=== PATIENT | female | born 1980 | race Caucasian/White ===

== ENCOUNTER 2016-10-13 10:47 | Emergency (ER) | payer BC, MEDICAID ==
[~2016-10-13] VITALS: Ht 172.7 cm; Wt 100.7 kg
[~2016-10-13 10:47] MED LIST: ACHYD1T PO; BREA1EAC5 MC; BUTA1TAB55 PO; DCS100C PO; HYDR-3720 PO; IBP800T PO; OMEP-10 PO; PREN1TAB39 PO
[2016-10-13] MEDS ORDERED: FOLI1TAB24 (11:03)
[2016-10-13] MEDS ORDERED: NORG1TAB77 (11:03)
[2016-10-13] MEDS ORDERED: morphine INJ 10 MG/ML 1ML (SYR OR VIAL) IVP STA (11:35)
[2016-10-13] MEDS ORDERED: NS IV 1000 ML 1,000 ML IV ONE (11:35)
[2016-10-13 11:44] LABS: BILIRUBIN,URINE NEGATIVE (NEGATIVE); KETONES,URINE NEGATIVE (NEGATIVE); LEUKOCYTE ESTERASE ,URINE NEGATIVE (NEGATIVE); NITRITE,URINE NEGATIVE (NEGATIVE); PH,URINE 6.5 (5-9); PROTEIN,URINE NEGATIVE (NEGATIVE); UROBILINOGEN,URINE NORMAL (NORMAL)
--- NOTE | 2016-10-13 11:45 | ED Abdominal Pain ---
General Chief Complaint: Abdominal/GI Problems Stated Complaint: RIGHT ABD PAIN Nursing Triage Note: AMB TO ROOM WITH R UPPER QUAD PAIN. Sepsis Screen: No Definite Risk History of Present Illness Time Seen By Provider: 11:25 Initial Comments Evaluation evaluation for her right upper quadrant pain, started at noon yesterday. The patient does report having several episodes of diarrhea through the weekend. She had normal bowel movement yesterday evening. Denies any urinary symptoms. She has had 2 previous C-sections no other abdominal surgeries. Her last food intake was at 1999, 10/12/16. She had sips of water this morning. Pain 12/14. Timing/Duration: 12 Hours Severity/Quality: Moderate Location: RUQ Radiation: Flank Activities at Onset: None Modifying Factors: Improves With Lying down, Improves With Resting Associated Symptoms: Denies Symptoms Allergies and Home Medications Allergies Coded Allergies: minocycline (Verified Allergy, Unknown, 06/11/11) tetracycline (Verified Allergy, Unknown, 06/11/11) Home Medications Breast Pump 1 Pkt Each, 1 CHANELLE UD, #1 Prescribed by: JENNIFER SAMS on 10/02/13 0733 Docusate Sodium 100 Mg Capsule, 1 CAP PO DAILY PRN for CONSTIPATION, #60 Prescribed by: JENNIFER SAMS on 10/02/13 0733 Folic Acid 1 Mg Tablet, #120 (Reported) Hydrocodone Bit/Acetaminophen 1 Each Tablet, 1-2 TAB PO Q3H PRN for PAIN, #60 Prescribed by: JENNIFER SAMS on 10/02/13 0733 Hydrocodone/Acetaminophen 1 Each Tablet, 1 EACH PO Q4H PRN for PAIN, #12 Ref 0 Prescribed by: SOFYA DELGADO on 10/13/16 1357 Ibuprofen 800 Mg Tablet, 1 TAB PO Q6H PRN for PAIN, #60 Prescribed by: JENNIFER SAMS on 10/02/13 0733 Norgestimate-Ethinyl Estradiol 1 Each Tablet, #84 (Reported) Omeprazole 20 Mg Capsule.dr, 20 MG PO DAILY, (Reported) Vits W-Ca,Fe,Fa(<1MG) 1 Each Tablet, 1 EACH PO DAILY, (Reported) Review of Systems Constitutional: no symptoms reported, see HPI EENTM: No Symptoms Reported, See HPI Respiratory: No Symptoms Reported, See HPI Cardiovascular: No Symptoms Reported, See HPI Gastrointestinal: See HPI, Denies Abdomen Distended, Abdominal Pain, Denies Blood Streaked Stools, Denies Constipated, Diarrhea, Denies Difficulty Swallowing, Denies Nausea, Denies Vomiting Genitourinary: No Symptoms Reported, See HPI, Denies Burning, Frequency, Denies Hematuria, Denies Pain, Denies Urgency Musculoskeletal: no symptoms reported, see HPI Skin: no symptoms reported, see HPI Psychiatric/Neurological: No Symptoms Reported, See HPI Endocrine: No Symptoms Reported, See HPI Hematologic/Lymphatic: No Symptoms Reported, See HPI All Other Systems Reviewed Negative Unless Noted: Yes Past Wzygckp-Pgefih-Khwjgg Hx Patient Social History Alcohol Use: Denies Use Recreational Drug Use: No Smoking Status: Never a Smoker Recent Foreign Travel: No Contact w/Someone Who Travel: No Recent Infectious Disease Expo: No Recent Hopitalizations: No Immunizations Up To Date Tetanus Booster (TDap): Unknown Surgeries HX Surgeries: Yes (Knee arthroscopy, C/S X1 2011) Respiratory Hx Respiratory Disorders: No Cardiovascular Hx Cardiac Disorders: No Neurological Hx Neurological Disorders: No Reproductive System Hx Reproductive Disorders: No Genitourinary Hx Genitourinary Disorders: No Gastrointestinal Hx Gastrointestinal Disorders: No Musculoskeletal Hx Musculoskeletal Disorders: No Endocrine Hx Endocrine Disorders: No HEENT HX ENT Disorders: No Cancer Hx Cancer: No Psychosocial Hx Psychiatric Problems: No Integumentary HX Skin/Integumentary Disorder: No Blood Transfusions Hx Blood Disorders: No Reviewed Nursing Assessment Reviewed/Agree w Nursing PMH: Yes Family Medical History Family Medial History: History of - anemia G8 SISTER History of - disorder No Family History of: Abdominal aortic aneurysm Brooke's disease Alcoholism Aphasia Cancer Cancer of colon Cataract Chest pain Congenital heart disease Congestive heart failure Cystic fibrosis Dementia Dysphagia Family history: Allergy Family history: Alzheimer's disease Family history: Arthritis Family history: Asthma Family history: Breast disease Family history: Cardiovascular disease Family history: Coronary thrombosis Family history: Diabetes mellitus Family history: Gastrointestinal disease Family history: Glaucoma Family history: Hypertension Family history: Osteoporosis Family history: Thyroid disorder Headache Hearing loss Heart disease Hereditary disease History of - respiratory disease History of drug abuse Human immunodeficiency virus (HIV) seropositivity Hypercholesterolemia Infertile Kidney disease Malignant neoplasm of lung Myocardial infarction Parkinson's disease Prostate cancer Psychotic disorder Seizure disorder Stroke Tuberculosis Visual impairment Physical Exam Vital Signs VS - Last 72 Hours, by Label 10/13/16 10/13/16 10:53 14:05 Temp 99.7 Pulse 65 60 Resp 18 18 B/P (MAP) 165/99 Pulse Ox 97 Capillary Refill : Less Than 3 Seconds General Appearance: WD/WN, no apparent distress HEENT: PERRL/EOMI, normal ENT inspection, TMs normal, pharynx normal Neck: non-tender, full range of motion, supple, normal inspection, No lymphadenopathy (R), No lymphadenopathy (L) Respiratory: chest non-tender, lungs clear, normal breath sounds, no respiratory distress Cardiovascular: normal peripheral pulses, regular rate, rhythm, no edema, no JVD, no murmur Peripheral Pulses: 2+ Carotid (R), 2+ Carotid (L), 2+ Dorsalis Pedis (R), 2+ Left Dors-Pedis (L), 2+ Radial Pulses (R), 2+ Radial Pulses (L) Gastrointestinal: normal bowel sounds, soft, no organomegaly, no pulsatile mass , No distended, guarding, No rebound, tenderness (right upper quadrant), No hepatomegaly, No spleenomegaly, other (+Ro sign) Extremities: normal range of motion, non-tender, normal inspection, no pedal edema, no calf tenderness, normal capillary refill Back: normal inspection, no CVA tenderness Neurologic/Psychiatric: no motor/sensory deficits, alert, normal mood/affect, oriented x 3 Skin: normal color, warm/dry, No jaundice, No pallor, No rash Lymphatic: no adenopathy Progress/Results/Core Measures Results/Orders Lab Results Laboratory Tests Test 10/13/16 11:35 10/13/16 11:38 Range/Units Urine Color YELLOW Urine Clarity CLEAR Urine pH 6.5 5-9 Urine Specific [place] 1.005 L 1.016-1.022 Urine Protein NEGATIVE NEGATIVE Urine Glucose (UA) NEGATIVE NEGATIVE Urine Ketones NEGATIVE NEGATIVE Urine Nitrite NEGATIVE NEGATIVE Urine Bilirubin NEGATIVE NEGATIVE Urine Urobilinogen NORMAL NORMAL MG/DL Urine Leukocyte Esterase NEGATIVE NEGATIVE Urine RBC (Auto) NEGATIVE NEGATIVE Urine RBC NONE /HPF Urine WBC NONE /HPF Urine Squamous Epithelial Cells 0-2 /HPF Urine Crystals NONE /LPF Urine Bacteria TRACE /HPF Urine Casts NONE /LPF Urine Mucus NEGATIVE /LPF Urine Culture Indicated NO White Blood Count 6.4 4.3-11.0 10^3/uL Red Blood Count 4.66 4.35-5.85 10^6/uL Hemoglobin 13.9 11.5-16.0 G/DL Hematocrit 40 35-52 % Mean Corpuscular Volume 86 80-99 FL Mean Corpuscular Hemoglobin 30 25-34 PG Mean Corpuscular Hemoglobin Concent 35 32-36 G/DL Red Cell Distribution Width 11.8 10.0-14.5 % Platelet Count 153 130-400 10^3/uL Mean Platelet Volume 10.2 7.4-10.4 FL Neutrophils (%) (Auto) 50 42-75 % Lymphocytes (%) (Auto) 43 12-44 % Monocytes (%) (Auto) 6 0-12 % Eosinophils (%) (Auto) 1 0-10 % Basophils (%) (Auto) 0 0-10 % Neutrophils # (Auto) 3.2 1.8-7.8 X 10^3 Lymphocytes # (Auto) 2.8 1.0-4.0 X 10^3 Monocytes # (Auto) 0.4 0.0-1.0 X 10^3 Eosinophils # (Auto) 0.1 0.0-0.3 10^3/uL Basophils # (Auto) 0.0 0.0-0.1 10^3/uL Sodium Level 140 135-145 MMOL/L Potassium Level 4.0 3.6-5.0 MMOL/L Chloride Level 108 H 98-107 MMOL/L Carbon Dioxide Level 24 21-32 MMOL/L Anion Gap 8 5-14 MMOL/L Blood Urea Nitrogen 8 7-18 MG/DL Creatinine 0.79 0.60-1.30 MG/DL Estimat Glomerular Filtration Rate > 60 BUN/Creatinine Ratio 10 Glucose Level 88 70-105 MG/DL Calcium Level 9.1 8.5-10.1 MG/DL Total Bilirubin 0.4 0.1-1.0 MG/DL Aspartate Amino Transf (AST/SGOT) 15 5-34 U/L Alanine Aminotransferase (ALT/SGPT) 13 0-55 U/L Alkaline Phosphatase 65 40-136 U/L Total Protein 7.3 6.4-8.2 G/DL Albumin 4.3 3.2-4.5 G/DL Triglycerides Level 100 <150 MG/DL Cholesterol Level 158 < 200 MG/DL LDL Cholesterol Direct 79 1-129 MG/DL VLDL Cholesterol 20 5-40 MG/DL HDL Cholesterol 64 H 40-60 MG/DL Amylase Level 45 25-125 U/L Lipase 23 8-78 U/L My Orders Orders - SOFYA DELGADO [employer]PERATOR Morphine Injection (Morphine Injection (10/13/16 11:35) Amylase (10/13/16 11:35) Cbc With Automated Diff (10/13/16 11:35) Comprehensive Metabolic Panel (10/13/16 11:35) Lipase (10/13/16 11:35) Ua Culture If Indicated (10/13/16 11:35) Saline Lock/Iv-Start (10/13/16 11:35) Ns Iv 1000 Ml (Sodium Chloride 0.9%) (10/13/16 11:35) Us Gallbladder [id number] (10/13/16 11:35) Urine Bedside (10/13/16 11:46) Hyoscyamine Sl Tablet (Levsin Sl Tablet) (10/13/16 12:45) Ct Abdomen/Pelvis W (10/13/16 12:40) Iohexol Injection (Omnipaque 350 Mg/Ml 1 (10/13/16 13:00) Sodium Chloride Flush (Catheter Flush Sy (10/13/16 13:00) Ns (Ivpb) (Sodium Chloride 0.9% Ivpb Bag (10/13/16 13:00) Lipid Panel (10/13/16 13:33) Ketorolac Injection (Toradol Injection) (10/13/16 13:44) Medications Given in ED Current Medications Medications Dose Ordered Sig/Ulises Route Start Time Stop Time Status Last Admin Dose Admin Hyoscyamine Sulfate 0.125 mg ONCE ONCE SL 10/13/16 12:45 10/13/16 12:46 DC 10/13/16 13:18 0.125 MG Iohexol 100 ml ONCE ONCE IV 10/13/16 13:00 10/13/16 13:01 DC 10/13/16 13:01 100 ML Sodium Chloride 100 ml ONCE ONCE IV 10/13/16 13:00 10/13/16 13:01 DC 10/13/16 13:01 80 ML Sodium Chloride 1,000 ml @ 0 mls/hr Q0M ONCE IV 10/13/16 11:35 10/13/16 11:40 DC 10/13/16 11:45 1,000 MLS/HR Vital Signs/I&O Vital Sign - Last 12Hours 10/13/16 10/13/16 10:53 14:05 Temp 99.7 Pulse 65 60 Resp 18 18 B/P (MAP) 165/99 Pulse Ox 97 Blood Pressure Mean: 121 Progress Note : Time: 11:25 Progress Note Initial evaluation completed, recommended ultrasound of the gallbladder. Morphine 5 mg IV for pain and labs. 1200 WBC 6.4, hemoglobin 13.9, hematocrit 40, sodium 140, potassium 4.0, BUNs 8 , total bilirubin 0.4, AST 15, ALT 13, amylase 45, lipase 23. 1230 UA and Ultrasound gallbladder was essentially normal, with steatosis. Discussed with patient and her will follow-up with CT abdomen and pelvis. 1300 CT abdomen and pelvis normal. Lipid panel ordered, results all within normal limits. Discussed all results with the patient and her they will follow-up with Dr. Mandujano and consider referral to Dr. Denny. Diagnostic Imaging Diagonstic Imaging: CT, Ultrasound Plain Films/CT/US/NM/MRI: abdomen, pelvis, other (gallbladder) Comments NAME: [facility] REC#: [id number] PT STATUS: REG ER : 1980 PHYSICIAN: SOFYA DELGADO ADMIT DATE: 10/13/16/ER Draft Date of Exam:10/13/16 US GALLBLADDER [id number] PROCEDURE: US Gallbladder. TECHNIQUE: Multiple real-time grayscale images were obtained over the right upper quadrant in various projections. INDICATION: Abdominal pain Liver has increased echogenicity consistent with fatty infiltration. The gallbladder is clear with no stones or wall thickening. Common duct is nondilated. Pancreas is partially obscured by bowel gas. Right kidney appeared normal. There is no ascites. IMPRESSION: Hepatic steatosis. Dictated on workstation # [id number] Dict: 10/13/16 1227 Trans: 10/13/[address] [facility] [id number] Interpreted by: JENNIFER HERNANDEZ Electronically signed by: NAME: [facility] REC#: [id number] PT STATUS: REG ER : 1980 PHYSICIAN: SOFYA DELGADO ADMIT DATE: 10/13/16/ER Signed Date of Exam: 10/13/16 CT ABDOMEN/PELVIS W PROCEDURE: CT abdomen and pelvis with contrast. TECHNIQUE: Multiple contiguous axial images were obtained through the abdomen and pelvis after administration of intravenous contrast. INDICATION: Right-sided abdominal pain x1 day. FINDINGS: The lung bases are clear. The liver appears normal. The gallbladder is present. There are no pancreatic abnormalities. The spleen is not enlarged. Adrenals and kidneys appear normal. The appendix is normal. Small bowel is not dilated. Colon appears normal. Urinary bladder is normal. Uterus is present and appears normal. Ovaries appear normal. There is no intraperitoneal free air or free fluid. IMPRESSION: Negative CT of the abdomen and pelvis. Dictated by: Dictated on workstation # [id number] Dict: 10/13/16 1314 Trans: 10/13/16 1321 Interpreted by: JENNIFER HERNANDEZ Electronically signed by: JENNIFER HERNANDEZ 10/13/16 1321 Reviewed: Reviewed by Me, Reviewed/Discussed Departure Impression Impression: Primary Impression: Nonalcoholic fatty liver disease Additional Impression: Pain, abdominal, RUQ Disposition: 01 HOME, SELF-CARE Condition: Stable Departure-Patient Inst. Decision time for Depature: 13:15 Referrals: NICOL MANDUJANO MD (PCP/Family) Primary Care Physician Patient Instructions: Nonalcoholic Fatty Liver Disease (DC), Acute Abdomen ( Belly Pain), Adult (DC) Add. Discharge Instructions: Follow-up with Dr. Mandujano tomorrow. Make appointment to see Dr. Denny [phone] Use a bland diet, avoid fatty or greasy meals. Pain prescription as needed for discomfort. Return to emergency department for increased pain, vomiting or diarrhea, new concerns or problems. All discharge instructions reviewed with patient and/or family. Voiced understanding. Scripts Hydrocodone/Acetaminophen (Hydrocodon -Acetaminophen 5-325) 1 Each Tablet 1 EACH PO Q4H Y for PAIN, #12 TAB 0 Refills Prov: SOFYA DELGADO 10/13/16 Copy Copies To 1: NICOL MANDUJANO MD Copies To 2: YOEL DENNY DO SOFYA DELGADO October 13, 2016 11:45
[2016-10-13 11:47] LABS: BASOPHILS % (AUTO) 0 % (0-10); EOSINOPHILS # (AUTO) 0.1 10^3/uL (0.0-0.3); EOSINOPHILS % (AUTO) 1 % (0-10); LYMPHOCYTES # (AUTO) 2.8 X 10^3 (1.0-4.0); LYMPHOCYTES % (AUTO) 43 % (12-44); MEAN CORPUSCULAR HEMOGLOBIN 30 PG (25-34); MEAN CORPUSCULAR HGB CONC 35 G/DL (32-36); MEAN CORPUSCULAR VOLUME 86 FL (80-99); MEAN PLATELET VOLUME 10.2 FL (7.4-10.4); MONOCYTES # (AUTO) 0.4 X 10^3 (0.0-1.0); MONOCYTES % (AUTO) 6 % (0-12); NEUTROPHILS # (AUTO) 3.2 X 10^3 (1.8-7.8); NEUTROPHILS % (AUTO) 50 % (42-75); PLATELET COUNT 153 10^3/uL (130-400); RED BLOOD COUNT 4.66 10^6/uL (4.35-5.85); RED CELL DISTRIBUTION WIDTH 11.8 % (10.0-14.5); WHITE BLOOD COUNT 6.4 10^3/uL (4.3-11.0)
[2016-10-13 11:56] LABS: SQUAMOUS EPITHELIAL CELL,UR 0-2 /HPF
[2016-10-13 12:05] LABS: ALANINE AMINOTRANSFERASE 13 U/L (0-55); ALBUMIN 4.3 G/DL (3.2-4.5); AMYLASE 45 U/L (25-125); ANION GAP 8 MMOL/L (5-14); ASPARTATE AMINO TRANSFERASE 15 U/L (5-34); BILIRUBIN,TOTAL 0.4 MG/DL (0.1-1.0); BLOOD UREA NITROGEN 8 MG/DL (7-18); BUN/CREATININE RATIO 10; CALCIUM 9.1 MG/DL (8.5-10.1); CARBON DIOXIDE 24 MMOL/L (21-32); CHLORIDE 108 MMOL/L (98-107); CREATININE SERUM 0.79 MG/DL (0.60-1.30); GFR ESTIMATED > 60; GLUCOSE 88 MG/DL (70-105); LIPASE 23 U/L (8-78); SODIUM 140 MMOL/L (135-145); TOTAL PROTEIN 7.3 G/DL (6.4-8.2)
--- NOTE | 2016-10-13 12:30 | Diagnostic Imaging Report ---
PROCEDURE: US Gallbladder. TECHNIQUE: Multiple real-time grayscale images were obtained over the right upper quadrant in various projections. INDICATION: Abdominal pain Liver has increased echogenicity consistent with fatty infiltration. The gallbladder is clear with no stones or wall thickening. Common duct is nondilated. Pancreas is partially obscured by bowel gas. Right kidney appeared normal. There is no ascites. IMPRESSION: Hepatic steatosis. Dictated by: Dictated on workstation # [id number]
[2016-10-13] MEDS ORDERED: HYOSCYAMINE 0.125 MG (LEVSIN) TAB SL ONE (12:45)
[2016-10-13] MEDS ORDERED: NS 100 ML (IVPB) BAG IV ONE (13:00)
[2016-10-13] MEDS ORDERED: IOHEXOL 350 MG/ML 100 ML (OMNIPAQUE 350) VIAL IV ONE (13:00)
[2016-10-13] MEDS ORDERED: CATHETER FLUSH 10 ML SYR IV PRN (13:00)
--- NOTE | 2016-10-13 13:20 | Diagnostic Imaging Report ---
PROCEDURE: CT abdomen and pelvis with contrast. TECHNIQUE: Multiple contiguous axial images were obtained through the abdomen and pelvis after administration of intravenous contrast. INDICATION: Right-sided abdominal pain x1 day. FINDINGS: The lung bases are clear. The liver appears normal. The gallbladder is present. There are no pancreatic abnormalities. The spleen is not enlarged. Adrenals and kidneys appear normal. The appendix is normal. Small bowel is not dilated. Colon appears normal. Urinary bladder is normal. Uterus is present and appears normal. Ovaries appear normal. There is no intraperitoneal free air or free fluid. IMPRESSION: Negative CT of the abdomen and pelvis. Dictated by: Dictated on workstation # [id number]
[2016-10-13] MEDS ORDERED: KETOROLAC 30 MG/ML VIAL IVP STA (13:44)
[2016-10-13 13:54] LABS: CHOLESTEROL 158 MG/DL (< 200); DIRECT LDL 79 MG/DL (1-129); TRIGLYCERIDES 100 MG/DL (<150); VLDL CHOLESTEROL 20 MG/DL (5-40)
[2016-10-13] MEDS ORDERED: HYDR-3812 PO (13:57)
[2016-10-13 14:05] VITALS: BP 133/75
== END 2016-10-13 14:10 | disposition home or self-care (01) ==
LOC: EDUNIT# 10:47 → ER 10:50
DX: R10.11 Right upper quadrant pain (principal); K76.0 Fatty (change of) liver, not elsewhere classified
CPT/HCPCS: 36415; 74177; 76705; 80053; 80061; 81000; 82150; 83690; 84703; 85025

== ENCOUNTER 2018-04-15 10:28 | Outpatient (CLI) | payer BC, MEDICAID ==
[~2018-04-15] VITALS: Ht 172.7 cm; Wt 117.9 kg
[2018-04-15 08:50] VITALS: BP 136/72
--- OUTSIDE RECORDS SUMMARY | 2018-04-15 08:52 | XMS REPORT | Continuity of Care Document ---
Author Author [facility] Organization [facility] Address Unknown Phone Unavailable Allergies Active Description Code Type Severity Reaction Onset Reported/Identified Relationship to Patient Clinical Status Yes minocycline [id number] Drug Allergy Unknown N/A 06/11/2011 Yes tetracycline [id number] Drug Allergy Unknown N/A 06/11/2011 Medications There is no data. Problems Date Dx Coded Attending Type Code Diagnosis Diagnosed By 06/14/2011 Ot 642.71 TOX W OLD HYPERTEN-DELIV 06/14/2011 Ot 644.21 EARLY ONSET DELIVERY-DEL 06/14/2011 Ot 648.81 ABN GLUCOSE PETAR-DELIV 06/14/2011 Ot 660.31 PERSIST OCCIPTPOST-DELIV 06/14/2011 Ot 661.21 UTERINE INERT NEC-DELIV 06/14/2011 Ot V06.1 DIPHTHERIA- TETANUS-PERTUSSIS, COMBINED [ 06/14/2011 Ot V27.0 DELIVER- SINGLE LIVEBORN 04/30/2012 Ot 784.0 HEADACHE 10/02/2013 WILLIAM BARNETT, JENNIFER Main Ot 654.21 PREV DELIVRY W/ OR W/O MENT ANT 10/02/2013 JENNIFER THOMAS MD Ot V06.1 [id number], COMBINED [ 10/02/2013 WILLIAM BARNETT, JENNIFER Main Ot V27.0 DELIVER-SINGLE LIVEBORN 06/18/2014 JENNIFER THOMAS MD Ot 796.5 06/18/2014 JENNIFER THOMAS MD Ot 642.43 10/13/2016 JENNIFER THOMAS MD, Ot 796.5 ABN SCREENING 10/13/2016 JENNIFER THOMAS MD Ot 642.43 MILD/NOS PREECLAMP-ANTEP 10/13/2016 SOFYA DELGADO Ot K76.0 FATTY (CHANGE OF) LIVER, NOT ELSEWHERE C 10/13/2016 SOFYA DELGADOP Ot R10.11 RIGHT UPPER QUADRANT PAIN Procedures Code Description Performed By Performed On 73.4 MEDICAL INDUCTION LABOR 06/12/2011 74.1 LOW CERVICAL 06/12/2011 72.9 INSTRUMENT DELIVERY NOS 09/29/2013 74.1 LOW CERVICAL 09/29/2013 Results Test Result Range Complete urinalysis with reflex to culture - 10/13/16 11:35 Urine color determination YELLOW NRG Urine clarity determination CLEAR NRG Urine pH measurement by test strip 6.5 5-9 Specific gravity of urine by test strip 1.005 1.016- 1.022 Urine protein assay by test strip, semi-quantitative NEGATIVE NEGATIVE Urine glucose detection by automated test strip NEGATIVE NEGATIVE Erythrocytes detection in urine sediment by light microscopy NEGATIVE NEGATIVE Urine ketones detection by automated test strip NEGATIVE NEGATIVE Urine nitrite detection by test strip NEGATIVE NEGATIVE Urine total bilirubin detection by test strip NEGATIVE NEGATIVE Urine urobilinogen measurement by automated test strip (mass/volume) NORMAL NORMAL Urine leukocyte esterase detection by dipstick NEGATIVE NEGATIVE Automated urine sediment erythrocyte count by microscopy (number/high power field) NONE NRG Automated urine sediment leukocyte count by microscopy (number/high power field ) NONE NRG Bacteria detection in urine sediment by light microscopy TRACE NRG Squamous epithelial cells detection in urine sediment by light microscopy 0-2 NRG Crystals detection in urine sediment by light microscopy NONE NRG Casts detection in urine sediment by light microscopy NONE NRG Mucus detection in urine sediment by light microscopy NEGATIVE NRG Complete urinalysis with reflex to culture NO NRG Complete blood count (CBC) with automated white blood cell (WBC) differential - 10/13/16 11:38 Blood leukocytes automated count (number/volume) 6.4 10*3/uL 4.3-11.0 Blood erythrocytes automated count (number/volume) 4.66 10*6/uL 4.35-5.85 Venous blood hemoglobin measurement (mass/volume) 13.9 g/dL 11.5-16.0 Blood hematocrit (volume fraction) 40 % 35-52 Automated erythrocyte mean corpuscular volume 86 [foz_us] 80-99 Automated erythrocyte mean corpuscular hemoglobin (mass per erythrocyte) 30 pg 25-34 Automated erythrocyte mean corpuscular hemoglobin concentration measurement ( mass/volume) 35 g/dL 32-36 Automated erythrocyte distribution width ratio 11.8 % 10.0-14.5 Automated blood platelet count (count/volume) 153 10*3/uL 130-400 Automated blood platelet mean volume measurement 10.2 [foz_us] 7.4-10.4 Automated blood neutrophils/100 leukocytes 50 % 42-75 Automated blood lymphocytes/100 leukocytes 43 % 12-44 Blood monocytes/100 leukocytes 6 % 0-12 Automated blood eosinophils/100 leukocytes 1 % 0-10 Automated blood basophils/100 leukocytes 0 % 0-10 Blood neutrophils automated count (number/volume) 3.2 10*3 1.8-7.8 Blood lymphocytes automated count (number/volume) 2.8 10*3 1.0-4.0 Blood monocytes automated count (number/volume) 0.4 10*3 0.0-1.0 Automated eosinophil count 0.1 10*3/uL 0.0-0.3 Automated blood basophil count (count/volume) 0.0 10*3/uL 0.0-0.1 Comprehensive metabolic panel - 10/13/16 11:38 Serum or plasma sodium measurement (moles/volume) 140 mmol/L 135-145 Serum or plasma potassium measurement (moles/volume) 4.0 mmol/L 3.6-5.0 Serum or plasma chloride measurement (moles/volume) 108 mmol/L 98-107 Carbon dioxide 24 mmol/L 21-32 Serum or plasma anion gap determination (moles/volume) 8 mmol/L 5-14 Serum or plasma urea nitrogen measurement (mass/volume) 8 mg/dL 7-18 Serum or plasma creatinine measurement (mass/volume) 0.79 mg/dL 0.60-1.30 Serum or plasma urea nitrogen/creatinine mass ratio 10 NRG Serum or plasma creatinine measurement with calculation of estimated glomerular filtration rate > NRG Serum or plasma glucose measurement (mass/volume) 88 mg/dL 70-105 Serum or plasma calcium measurement (mass/volume) 9.1 mg/dL 8.5-10.1 Serum or plasma total bilirubin measurement (mass/volume) 0.4 mg/dL 0.1-1.0 Serum or plasma alkaline phosphatase measurement (enzymatic activity/volume) 65 U/L 40-136 Serum or plasma aspartate aminotransferase measurement (enzymatic activity/ volume) 15 U/L 5-34 Serum or plasma alanine aminotransferase measurement (enzymatic activity/volume ) 13 U/L 0-55 Serum or plasma protein measurement (mass/volume) 7.3 g/dL 6.4-8.2 Serum or plasma albumin measurement (mass/volume) 4.3 g/dL 3.2-4.5 Serum or plasma amylase measurement (enzymatic activity/volume) - 10/13/16 11: 38 Serum or plasma amylase measurement (enzymatic activity/volume) 45 U /L 25-125 Lipase - 10/13/16 11:38 Lipase 23 U/L 8-78 Lipid 1996 panel - 10/13/16 11:38 Serum or plasma triglyceride measurement (mass/volume) 100 mg/dL <150 Serum or plasma cholesterol measurement (mass/volume) 158 mg/dL < 200 Serum or plasma cholesterol in HDL measurement (mass/volume) 64 mg/ dL 40-60 Cholesterol in LDL [mass/volume] in serum or plasma by direct assay 79 mg/dL 1-129 Serum or plasma cholesterol in VLDL measurement (mass/volume) 20 mg/ dL 5-40 Encounters ACCT No. Visit Date/Time Discharge Status Pt. Type Provider Facility Loc./Unit Complaint [id number] 10/13/2016 10:50:00 10/13/2016 14:10:00 DIS Emergency SANDYSOFYA Rojas [facility] ER RIGHT ABD PAIN [id number] 09/29/2013 08:41:00 10/02/2013 19:00:00 DIS Inpatient JENNIFER THOMAS MD [facility] WS REPEAT [id number] 09/27/2013 11:01:00 09/27/2013 23:59:59 CLS Outpatient JENNIFER THOMAS MD [facility] LABNPT Mild or unspecified pre-eclampsia antepartum [id number] 09/19/2013 10:40:00 09/19/2013 23:59:59 CLS Outpatient JENNIFER THOMAS MD [facility] LABSTEPHYT Abnormal finding on screening [id number] 04/15/2018 08:48:00 ACT Inpatient JENNIFER THOMAS MD [facility] LDRP HIGH BLOOD PRESSURE [id number] 04/30/2012 21:07:00 Document Registration [id number] 06/11/2011 17:08:00 Document Registration
[2018-04-15 09:10] VITALS: BP 148/81
[2018-04-15 09:20] VITALS: BP 171/82
[2018-04-15 09:24] LABS: BILIRUBIN,URINE NEGATIVE (NEGATIVE); CLARITY,URINE CLEAR; COLOR,URINE YELLOW; GLUCOSE, URINE (UA) NEGATIVE (NEGATIVE); KETONES,URINE NEGATIVE (NEGATIVE); LEUKOCYTE ESTERASE ,URINE NEGATIVE (NEGATIVE); NITRITE,URINE NEGATIVE (NEGATIVE); PH,URINE 6 (5-9); PROTEIN,URINE NEGATIVE (NEGATIVE); UROBILINOGEN,URINE NORMAL (NORMAL)
[2018-04-15 09:26] LABS: BASOPHILS % (AUTO) 0 % (0-10); EOSINOPHILS # (AUTO) 0.1 10^3/uL (0.0-0.3); EOSINOPHILS % (AUTO) 1 % (0-10); HEMATOCRIT 36 % (35-52); HEMOGLOBIN 12.2 G/DL (11.5-16.0); LYMPHOCYTES # (AUTO) 2.3 X 10^3 (1.0-4.0); LYMPHOCYTES % (AUTO) 17 % (12-44); MEAN CORPUSCULAR HEMOGLOBIN 31 PG (25-34); MEAN CORPUSCULAR HGB CONC 34 G/DL (32-36); MEAN CORPUSCULAR VOLUME 90 FL (80-99); MEAN PLATELET VOLUME 9.5 FL (7.4-10.4); MONOCYTES # (AUTO) 0.9 X 10^3 (0.0-1.0); MONOCYTES % (AUTO) 6 % (0-12); NEUTROPHILS # (AUTO) 10.2 X 10^3 (1.8-7.8); NEUTROPHILS % (AUTO) 76 % (42-75); PLATELET COUNT 163 10^3/uL (130-400); RED CELL DISTRIBUTION WIDTH 13.3 % (10.0-14.5); WHITE BLOOD COUNT 13.5 10^3/uL (4.3-11.0)
[2018-04-15 09:28] LABS: SMEAR SCAN COMMENT NO
[2018-04-15 09:35] VITALS: BP 173/87
[2018-04-15 09:39] LABS: URINE PROTEIN RANDOM 11 MG/DL (6-12)
[2018-04-15 09:43] LABS: BAND NEUTROPHILS 0 %; EOSINOPHILS % (MANUAL) 0 %; LYMPHOCYTES % (MANUAL) 21 %; MONOCYTES % (MANUAL) 5 %; NEUTROPHILS % (MANUAL) 74 %
[2018-04-15 09:44] LABS: BASOPHILS % (MANUAL) 0 %; RBC MORPH NORMAL
[2018-04-15 09:53] LABS: ALANINE AMINOTRANSFERASE 16 U/L (0-55); ALBUMIN 3.5 GM/DL (3.2-4.5); ALKALINE PHOSPHATASE 101 U/L (40-136); BILIRUBIN,TOTAL 0.4 MG/DL (0.1-1.0); BUN/CREATININE RATIO 11; CARBON DIOXIDE 20 MMOL/L (21-32); CHLORIDE 107 MMOL/L (98-107); CREATININE SERUM 0.61 MG/DL (0.60-1.30); GFR ESTIMATED > 60; GLUCOSE 91 MG/DL (70-105); POTASSIUM 3.9 MMOL/L (3.6-5.0); SODIUM 137 MMOL/L (135-145); TOTAL PROTEIN 6.6 GM/DL (6.4-8.2); URIC ACID 4.2 MG/DL (2.6-7.2)
[2018-04-15 09:55] VITALS: BP 142/100
[~2018-04-15 10:28] MED LIST changes: +ACHD5005 PO; +FOLI1TAB24; +NORG1TAB77
--- NOTE | 2018-04-20 16:21 | Physician Query-Final Dx ---
ALBAN MACE 04/20/18 1621: Clinic Account Progress/Dx Physician Query: Please give diagnosis Date of Service Apr 15, 2018 at 10:28 JENNIFER THOMAS MD 04/22/18 1248: Clinic Account Progress/Dx DIAGNOSIS: Diagnosis LUIS ALBAN MACE Apr 20, 2018 16:21 JENNIFER THOMAS MD Apr 22, 2018 12:48
== END 2018-04-15 10:40 ==
LOC: LDRP 10:28 → WSo 10:28
PROVIDERS: ATTEND Obstetrics & Gynecology
DX: O13.9 Gestational [pregnancy-induced] hypertension without significant proteinuria, unspecified trimester (principal)
CPT/HCPCS: 36415; 80053; 81002; 82570; 83615; 84156; 84550; 85007; 85027; 99213

== ENCOUNTER → 2018-04-19 | Outpatient (CLI) | payer BC, MEDICAID | LOC: LABNPT 09:58 | PROVIDERS: ATTEND Obstetrics & Gynecology | DX: O28.8 Other abnormal findings on antenatal screening of mother (principal) | CPT/HCPCS: 82570; 84156 ==

== ENCOUNTER 2018-05-04 09:23 | Inpatient (IN) | payer BC, MEDICAID ==
[~2018-05-04] VITALS: Ht 172.7 cm; Wt 117.0 kg
[2018-05-04] VITALS (19 sets, daily range): BP systolic 137–187; BP diastolic 74–101
[~2018-05-04 09:23] MED LIST changes: +BETAMETHASONE ACE/NA PHOS 6 MG/ML (CELESTONE SOLUSPAN) IM SCH
[2018-05-04 09:58] LABS: BASOPHILS % (AUTO) 0 % (0-10); EOSINOPHILS # (AUTO) 0.1 10^3/uL (0.0-0.3); EOSINOPHILS % (AUTO) 1 % (0-10); HEMATOCRIT 34 % (35-52); HEMOGLOBIN 11.8 G/DL (11.5-16.0); LYMPHOCYTES # (AUTO) 2.1 X 10^3 (1.0-4.0); LYMPHOCYTES % (AUTO) 17 % (12-44); MEAN CORPUSCULAR HEMOGLOBIN 31 PG (25-34); MEAN CORPUSCULAR HGB CONC 34 G/DL (32-36); MEAN CORPUSCULAR VOLUME 89 FL (80-99); MEAN PLATELET VOLUME 9.5 FL (7.4-10.4); MONOCYTES # (AUTO) 0.9 X 10^3 (0.0-1.0); MONOCYTES % (AUTO) 7 % (0-12); NEUTROPHILS # (AUTO) 9.5 X 10^3 (1.8-7.8); NEUTROPHILS % (AUTO) 76 % (42-75); PLATELET COUNT 175 10^3/uL (130-400); RED BLOOD COUNT 3.84 10^6/uL (4.35-5.85); RED CELL DISTRIBUTION WIDTH 13.2 % (10.0-14.5); WHITE BLOOD COUNT 12.6 10^3/uL (4.3-11.0)
[2018-05-04] MEDS ORDERED: BETAMETHASONE ACE/NA PHOS 6 MG/ML (CELESTONE SOLUSPAN) ONE (10:10)
[2018-05-04] MEDS ORDERED: D5 LR IV SOLUTION 1,000 ML IV ONE (10:18)
[2018-05-04 10:21] LABS: ALANINE AMINOTRANSFERASE 12 U/L (0-55); ALBUMIN 3.4 GM/DL (3.2-4.5); ALKALINE PHOSPHATASE 110 U/L (40-136); BILIRUBIN,TOTAL 0.4 MG/DL (0.1-1.0); BUN/CREATININE RATIO 11; CALCIUM 9.1 MG/DL (8.5-10.1); CARBON DIOXIDE 20 MMOL/L (21-32); CHLORIDE 107 MMOL/L (98-107); CREATININE SERUM 0.65 MG/DL (0.60-1.30); GFR ESTIMATED > 60; GLUCOSE 84 MG/DL (70-105); SODIUM 137 MMOL/L (135-145); TOTAL PROTEIN 6.5 GM/DL (6.4-8.2); URIC ACID 3.9 MG/DL (2.6-7.2)
[2018-05-04] MEDS ORDERED: D5 LR IV SOLUTION 1,000 ML IV SCH (10:30)
[2018-05-04] MEDS ORDERED: LACTATED RINGERS 1,000 ML IV PRN ×2 (11:13)
[2018-05-04] MEDS ORDERED: FAMOTIDINE 20MG/2ML IV (PEPCID) IV ONE (11:15)
[2018-05-04] MEDS ORDERED: CITRIC ACID/SOB CIT (BICITRA) 30 ML UDC PO ONE (11:15)
[2018-05-04] MEDS ORDERED: MAGNESIUM SULFATE DRIP 500 ML IV ONE (11:15)
[2018-05-04] MEDS ORDERED: METOCLOPRAMIDE INJ 10 MG/2 ML (REGLAN) IV ONE (11:15)
[2018-05-04] MEDS ORDERED: MAGNESIUM 2 GM/50 ML IVPB 50 ML IV ONE (11:15)
[2018-05-04] MEDS ORDERED: MAGNESIUM 1 GM/100 ML IVPB 100 ML IV ONE (11:15)
[2018-05-04] MEDS ORDERED: CALCIUM GLUC. 10% 4.65 MEQ/10 ML VIAL IV PRN (11:15)
[2018-05-04] MEDS ORDERED: hydrALAZINE (APESOLINE) 20 MG/ML VIAL IV ONE ×3 (11:15→12:00)
[2018-05-04] MEDS ORDERED: hydrALAZINE (APESOLINE) 20 MG/ML VIAL ONE (11:15)
--- OUTSIDE RECORDS SUMMARY | 2018-05-04 11:18 | XMS REPORT | Continuity of Care Document ---
Author Author [facility] Organization [facility] Address Unknown Phone Unavailable Allergies Active Description Code Type Severity Reaction Onset Reported/Identified Relationship to Patient Clinical Status Yes minocycline [id number] Drug Allergy Unknown N/A 06/11/2011 Yes tetracycline [id number] Drug Allergy Unknown N/A 06/11/2011 Medications There [...] ANT 10/02/2013 JENNIFER THOMAS MD Ot V06.1 [id number], COMBINED [ 10/02/2013 WILLIAM BARNETT, JENNIFER Main Ot V27.0 DELIVER-SINGLE LIVEBORN 06/18/2014 JENNIFER THOMAS MD Ot 796.5 06/18/2014 JENNIFER THOMAS MD Ot 642.43 10/13/2016 JENNIFER THOMAS MD, Ot 796.5 ABN SCREENING 10/13/2016 JENNIFER THOMAS MD Ot 642.43 MILD/NOS PREECLAMP-ANTEP 10/13/2016 SOFYA DELGADO Ot K76.0 FATTY (CHANGE OF) LIVER, NOT ELSEWHERE C 10/13/2016 SOFYA DELGADO Ot R10.11 RIGHT UPPER QUADRANT PAIN 04/22/2018 JENNIFER THOMAS MD Ot O13.9 GESTATIONAL HTN W/O SIGNIFICANT PROTEINU 04/22/2018 JENNIFER THOMAS MD Ot O28.8 OTHER ABNORMAL FINDINGS ON SCR Procedures Code Description Performed By Performed On [...] VLDL measurement (mass/volume) 20 mg/ dL 5-40 Automated dipstick urinalysis - 04/15/18 08:40 Urine color determination YELLOW NRG Urine clarity determination CLEAR NRG Urine pH measurement by test strip 6 5-9 Specific gravity of urine by test strip 1.015 1.016- 1.022 Urine protein assay by test [...] leukocyte esterase detection by dipstick NEGATIVE NEGATIVE Urine protein measurement (mass/volume) - 04/15/18 08:40 Urine protein measurement (mass/volume) 11 mg/dL 6-12 Urine protein/creatinine mass ratio - 04/15/18 08:40 Urine protein measurement (mass/volume) 12 mg/dL 6-12 Urine creatinine measurement (mass/volume) 95 mg/dL 30- 125 Urine protein/creatinine mass ratio 0.13 NRG Blood CBC with ordered manual differential panel - 04/15/18 09:20 Blood leukocytes automated count (number/volume) 13.5 10*3/uL 4.3-11.0 Blood erythrocytes automated count (number/volume) 4.00 10*6/uL 4.35-5.85 Venous blood hemoglobin measurement (mass/volume) 12.2 g/dL 11.5-16.0 Blood hematocrit (volume fraction) 36 % 35-52 Automated erythrocyte mean corpuscular volume 90 [foz_us] 80-99 Automated erythrocyte mean corpuscular hemoglobin (mass per erythrocyte) 31 pg 25-34 Automated erythrocyte mean corpuscular hemoglobin concentration measurement ( mass/volume) 34 g/dL 32-36 Automated erythrocyte distribution width ratio 13.3 % 10.0-14.5 Automated blood platelet count (count/volume) 163 10*3/uL 130-400 Automated blood platelet mean volume measurement 9.5 [foz_us] 7.4-10.4 Automated blood neutrophils/100 leukocytes 76 % 42-75 Automated blood lymphocytes/100 leukocytes 17 % 12-44 Blood monocytes/100 leukocytes 5 % NRG Automated blood eosinophils/100 leukocytes 1 % 0-10 Automated blood basophils/100 leukocytes 0 % 0-10 Blood neutrophils automated count (number/volume) 10.2 10*3 1.8-7.8 Blood lymphocytes automated count (number/volume) 2.3 10*3 1.0-4.0 Blood monocytes automated count (number/volume) 0.9 10*3 0.0-1.0 Automated eosinophil count 0.1 10*3/uL 0.0-0.3 Automated blood basophil count (count/volume) 0.0 10*3/uL 0.0-0.1 Manual blood segmented neutrophils/100 leukocytes 74 % NRG Blood band neutrophils/100 leukocytes 0 % NRG Manual blood lymphocytes/100 leukocytes 21 % NRG Manual eosinophils/100 leukocytes in nose 0 % NRG Manual blood basophils/100 leukocytes 0 % NRG Blood erythrocyte morphology finding identification NORMAL [facility] Blood blood smear finding identification by light microscopy NO [facility] Comprehensive metabolic panel - 04/15/18 09:20 Serum or plasma sodium measurement (moles/volume) 137 mmol/L 135-145 Serum or plasma potassium measurement (moles/volume) 3.9 mmol/L 3.6-5.0 Serum or plasma chloride measurement (moles/volume) 107 mmol/L 98-107 Carbon dioxide 20 mmol/L 21-32 Serum or plasma anion gap determination (moles/volume) 10 mmol/L 5-14 Serum or plasma urea nitrogen measurement (mass/volume) 7 mg/dL 7-18 Serum or plasma creatinine measurement (mass/volume) 0.61 mg/dL 0.60-1.30 Serum or plasma urea nitrogen/creatinine mass ratio 11 NRG Serum or plasma creatinine measurement with calculation of estimated glomerular filtration rate > NRG Serum or plasma glucose measurement (mass/volume) 91 mg/dL 70-105 Serum or plasma calcium measurement (mass/volume) 9.0 mg/dL 8.5-10.1 Serum or plasma total bilirubin measurement (mass/volume) 0.4 mg/dL 0.1-1.0 Serum or plasma alkaline phosphatase measurement (enzymatic activity/volume) 101 U/L 40-136 Serum or plasma aspartate aminotransferase measurement (enzymatic activity/ volume) 22 U/L 5-34 Serum or plasma alanine aminotransferase measurement (enzymatic activity/volume ) 16 U/L 0-55 Serum or plasma protein measurement (mass/volume) 6.6 g/dL 6.4-8.2 Serum or plasma albumin measurement (mass/volume) 3.5 g/dL 3.2-4.5 CALCIUM CORRECTED 9.4 mg/dL 8.5-10.1 Serum or plasma uric acid measurement (mass/volume) - 04/15/18 09:20 Serum or plasma uric acid measurement (mass/volume) 4.2 mg/dL 2.6-7.2 Lactate dehydrogenase 1 [enzymatic activity/volume] in serum or plasma - 09:20 Lactate dehydrogenase 1 [enzymatic activity/volume] in serum or plasma 266 U/L 125-220 Urine protein/creatinine mass ratio - 04/19/18 09:58 Urine protein measurement (mass/volume) 13 mg/dL 6-12 Urine creatinine measurement (mass/volume) 135 mg/dL 30- 125 Urine protein/creatinine mass ratio 0.10 NRG Encounters ACCT No. Visit Date/Time Discharge Status Pt. Type Provider Facility Loc./Unit Complaint [id number] 04/19/2018 09:58:00 04/19/2018 23:59:59 [facility] Outpatient WILLIAM BARNETT, JENNIFER [facility] LABNPT [id number] 04/15/2018 10:28:00 04/15/2018 10:40:00 DIS Outpatient JENN[facility] THOMAS [facility] HIGH BLOOD PRESSURE [id number] 10/13/2016 10:50:00 10/13/2016 14:10:00 DIS Emergency SOFYA DELGADO [facility] ER RIGHT ABD PAIN [id number] 09/29/2013 08:41:00 10/02/2013 19:00:00 DIS Inpatient JENNIFER THOMAS MD [facility] WS REPEAT [id number] 09/27/2013 11:01:00 09/27/2013 23:59:59 CLS Outpatient JENNIFER THOMAS MD [facility] LABNPT Mild or unspecified pre-eclampsia antepartum [id number] 09/19/2013 10:40:00 09/19/2013 23:59:59 CLS Outpatient JENNIFER THOMAS MD [facility] LABNPT Abnormal finding on screening [id number] 04/30/2012 21:07:00 Document Registration [id number] 06/11/2011 17:08:00 Document Registration
[2018-05-04] MEDS: MAGNESIUM SULFATE DRIP 500 ML IV SCH ×2 (11:50→21:34)
[2018-05-04] MEDS ORDERED: BUPIVACAINE SPINAL 0.75% (SENSORCAINE) 2 ML AMP ONE (11:56)
[2018-05-04] MEDS ORDERED: fentaNYL INJECTION 100 MCG/2 ML AMP ONE (11:56)
[2018-05-04] MEDS ORDERED: LIDOCAINE PF 2% 5 ML (XYLOCAINE) VIAL ONE (11:58)
[2018-05-04] MEDS ORDERED: ONDANSETRON 4 MG/2 ML (SDV) Z0FRAN ONE (11:59)
[2018-05-04] MEDS ORDERED: MEPERIDINE (DEMEROL) INJ 100 MG/ML IM PRN (12:00)
[2018-05-04] MEDS ORDERED: D5 LR IV SOLUTION 1,000 ML IV PRN (12:00)
[2018-05-04] MEDS ORDERED: MAGNESIUM SULFATE DRIP 500 ML IV SCH (12:00)
[2018-05-04] MEDS ORDERED: PROMETHAZINE INJ 25 MG/ML (PHENERGAN) AMP IM PRN (12:00)
[2018-05-04] MEDS ORDERED: TETANUS,DIPTH,PERTUSS P/F (BOOSTRIX) 0.5 ML VIAL IM ONE (12:00)
--- NOTE | 2018-05-04 12:00 | History & Physical ---
History and Physical Date Seen by Provider: May 04, 2018 Time Seen by Provider: 11:57 This patient is a 37-year-old A1 2 white female who is seen in clinic on this day with blood pressures of 100 190/100 in teens. She has 0.7 urine drug protein creatinine ratio. She is hyperreflexic. She does complain of a headache denies ruptured membranes or bleeding. She says she feels maybe an occasional contraction. She is admitted from clinic to labor and delivery for management. Her blood pressure has not improved with 3 doses of hydralazine 5 mg IV patient has been started on magnesium with a 2 g bolus and try 2 g an hour and we will proceed with delivery GBS culture result is not available Allergies are to tetracycline which causes anaphylaxis Medications are vitamins and folic acid Medical social and surgical history is operative Arm record HEENT exam is normal Neck supple no lymphadenopathy no thyromegaly Abdomen is gravid soft nontender nondistended Extremities show no clubbing or cyanosis. There is no Homans sign. DTRs are 4 + globally Pelvic exam is deferred Laboratory Tests Test 05/04/18 09:15 05/04/18 09:49 Range/Units Urine Protein 32 H 6-12 MG/DL Urine Creatinine 41 30-125 MG/DL Urine Protein/Creatinine Ratio 0.78 White Blood Count 12.6 H 4.3-11.0 10^3/uL Red Blood Count 3.84 L 4.35-5.85 10^6/uL Hemoglobin 11.8 11.5-16.0 G/DL Hematocrit 34 L 35-52 % Mean Corpuscular Volume 89 80-99 FL Mean Corpuscular Hemoglobin 31 25-34 PG Mean Corpuscular Hemoglobin Concent 34 32-36 G/DL Red Cell Distribution Width 13.2 10.0-14.5 % Platelet Count 175 130-400 10^3/uL Mean Platelet Volume 9.5 7.4-10.4 FL Neutrophils (%) (Auto) 76 H 42-75 % Lymphocytes (%) (Auto) 17 12-44 % Monocytes (%) (Auto) 7 0-12 % Eosinophils (%) (Auto) 1 0-10 % Basophils (%) (Auto) 0 0-10 % Neutrophils # (Auto) 9.5 H 1.8-7.8 X 10^3 Lymphocytes # (Auto) 2.1 1.0-4.0 X 10^3 Monocytes # (Auto) 0.9 0.0-1.0 X 10^3 Eosinophils # (Auto) 0.1 0.0-0.3 10^3/uL Basophils # (Auto) 0.0 0.0-0.1 10^3/uL Sodium Level 137 135-145 MMOL/L Potassium Level 4.0 3.6-5.0 MMOL/L Chloride Level 107 98-107 MMOL/L Carbon Dioxide Level 20 L 21-32 MMOL/L Anion Gap 10 5-14 MMOL/L Blood Urea Nitrogen 7 7-18 MG/DL Creatinine 0.65 0.60-1.30 MG/DL Estimat Glomerular Filtration Rate > 60 BUN/Creatinine Ratio 11 Glucose Level 84 70-105 MG/DL Uric Acid 3.9 2.6-7.2 MG/DL Calcium Level 9.1 8.5-10.1 MG/DL Corrected Calcium 9.6 8.5-10.1 MG/DL Total Bilirubin 0.4 0.1-1.0 MG/DL Aspartate Amino Transf (AST/SGOT) 16 5-34 U/L Alanine Aminotransferase (ALT/SGPT) 12 0-55 U/L Alkaline Phosphatase 110 40-136 U/L Lactate Dehydrogenase 154 125-220 U/L Total Protein 6.5 6.4-8.2 GM/DL Albumin 3.4 3.2-4.5 GM/DL Urine protein creatinine ratio is elevated alkaline phosphatase, balance of the lab work is reassuring Assessment and plan 35+ week gestation with severe preeclampsia previous C- sections 2. Patient is admitted to start on magnesium which we will continue until her blood pressures are normalizing. Proceed with delivery 35+ week with severe preeclampsia and previous 2 Allergies and Home Medications Allergies Coded Allergies: minocycline (Verified Allergy, Unknown, 06/11/11) tetracycline (Verified Allergy, Unknown, 06/11/11) Home Medications Vits W-Ca,Fe,Fa(<1MG) 1 Each Tablet, 1 EACH PO DAILY, (Reported) Patient Home Medication List Home Medication List Reviewed: Yes JENNIFER THOMAS MD May 04, 2018 12:00 pm
[2018-05-04] MEDS ORDERED: OXYTOCIN/NORMAL SALINE 1,000 ML IV ONE (12:01)
[2018-05-04] MEDS: OXYTOCIN/NORMAL SALINE 500 ML IV SCH ×2 (12:04→17:00)
[2018-05-04] MEDS ORDERED: metroNIDAZOLE 500MG/100ML IVPB 100 ML ONE (12:10)
[2018-05-04] MEDS ORDERED: ceFAZolin 2 GM IV Premixed 50 ML ONE (12:11)
[2018-05-04] MEDS ORDERED: PHENYLEPHRINE 100 MCG/ML 10 ML (ANESTHESIA) SYR ONE (13:02)
[2018-05-04] MEDS ORDERED: BUPIVACAINE 0.25% 30 ML (SENSORCAINE) VIAL ONE (13:02)
[2018-05-04] MEDS ORDERED: BUPIVACAINE 0.5% 30 ML (SENSORCAINE) VIAL ONE (13:07)
[2018-05-04] MEDS ORDERED: DEXAMETHASONE 10 MG/ML (DECADRON) 1 ML VIAL ONE (13:19)
--- NOTE | 2018-05-04 14:02 | Anesthesia-Peripheral Nerve Bl ---
Procedure Start/Stop Time Date of Procedure: May 04, 2018 Start Time: 13:30 Referring Physician: Lillian Stop Time: 13:42 Peripheral Nerve Block Peripheral Nerve Blockade Risk/Benefits/Alternatives discussed, including IV injection leading to complications or seizures, nerve irritation or damage, pneumothorax, total spinal anesthesia, injection, and/or bleeding. Approach: Bilateral TAP block Indication: Req Pain Mgmt by Surgeon Specifically requested for management of pain by: Physician requested: Lillian Patient Condition Vital Signs see anesthesia record Patient Condition: Awake Indication To PACU for recovery. TAP block performed by Stuart BYRNE with assistance of Ruth Diaz CRNA/Dr. Tafoya. Ultrasound guided visualization of abdominal planes, with continuous view of needle advancement. Good spread with injection of LA. Given incrementally to a total of 10 ml bilaterally. Pt tolerated well. Procedure Prepartation: Chlorhexidine Position: Supine Laundry Helper: 22g 3 1/8in echogenic needle Technique: Ultrasound Injectate: bupivacaine (10ml/side) Concentration %: 0.25 Volume (ml): 20 Narrative Injection was made incrementally with constant monitoring. Events Patient Conditon Post Peripheral Nerve Block Post Peripheral Nerve Block Vital Signs: Blood Pressure: Systolic Diastolic Heart Rate CATHIE DIAZ CRNA May 04, 2018 14:02
[2018-05-04] MEDS: KETOROLAC 30 MG/ML VIAL IVP SCH ×2 (15:37→22:15)
[2018-05-04] MEDS: oxyCODONE/APAP 10/325MG (PERCOCET 10) TABLET PO PRN ×3 (15:37→23:24)
[2018-05-04] MEDS ORDERED: LABETALOL 200 MG (NORMODYNE) TAB PO NR (16:15)
[2018-05-04] MEDS: DOCUSATE SODIUM 100 MG (COLACE) CAP PO SCH (19:51)
[2018-05-04] MEDS ORDERED: LABETALOL 200 MG (NORMODYNE) TAB PO ONE (20:45)
[2018-05-04] MEDS: LABETALOL 200 MG (NORMODYNE) TAB PO SCH (21:00)
--- NOTE | 2018-05-04 23:23 | OPERATIVE REPORT ---
DATE OF SERVICE: 05/04/2018 PREOPERATIVE DIAGNOSES: A 35 and 4/7 weeks' gestation with severe preeclampsia and previous C-sections x2 and requests for risk reducing salpingectomy to decrease her lifetime risk for a pelvic cancer. POSTOPERATIVE DIAGNOSES: A 35 and 4/7 weeks' gestation with severe preeclampsia and previous C-sections x2 and requests for risk reducing salpingectomy to decrease her lifetime risk for a pelvic cancer with pathology pending. OPERATIVE PROCEDURE: Primary low transverse delivery of a viable male with Apgars of 9 and 9 at 1 and 5 minutes respectively, weight 7 pounds 14 ounces. time of 12:42 and a cord blood gas that is pending at this time as well as bilateral risk reducing salpingectomy. OPERATIVE DESCRIPTION: With the patient in supine position under satisfactory spinal analgesia, she was prepped and draped in usual fashion for abdominal surgery. Tran catheter was placed in the urinary bladder. A repeat Pfannenstiel incision was made through skin with scalpel. By removing the patient's previous Pfannenstiel incisional scar, the abdomen was entered in the usual manner. Bladder retractor placed in position and cleaned. Scalpel was used to make a 4 cm hysterotomy incision across the lower uterine segment that was extended by blunt dissection as well, releasing a moderate aliquot of clear amniotic fluid. A vigorous viable male infant was delivered via the uterine incision. Stats were noted as noted above. The infant was bulb suctioned on delivery of the head and again on completion of delivery. The umbilical cord was doubly clamped, cut. The passed to the pediatric nurse in attendance for delivery. Cord bloods were obtained, the placenta delivered spontaneously [place]. It was normal with a 3-vessel cord. The uterus was exteriorized and to wipe clean with wet laparotomy sponge. Uterine incision closed with a running locked suture of 2-0 Vicryl. Hemostasis was complete. Both fallopian tubes were then removed by first opening the mesosalpinx in the avascular areas and then ligating the vessels that remained and then ligating the proximal portion of the fallopian tube at the cornu and the distal portion between the fimbria and the ovary. The fallopian tubes were then resected and sent to pathology, labeled appropriately for right and left. Uterus was now returned to abdominal cavity. All blood clot and debris was removed from the abdominal cavity. With sponge, needle counts correct, hemostasis assured. Anterior parietal peritoneum was closed with running suture of 2-0 Vicryl. Rectus muscles were closed with that suture as well. The rectus fascia was closed with 2-0 Vicryl, subcutaneous tissue with 2-0 Vicryl and the skin was stapled. Sponge and needle counts were correct at the end of procedure. Estimated blood loss was around 300 mL. The patient tolerated the procedure well and was transferred to the recovery room in stable condition. With the Tran catheter remaining to dependent drainage and with her IV magnesium running at 2 grams per hour for seizure prophylaxis secondary to her severe preeclampsia. The baby had been taken stable to the full term nursery under the care of Dr. Clark. Job ID: [id number] DocumentID: [id number] Dictated Date: 05/04/2018 13:19:05 Riveter Helper Date: 05/04/2018 23:12:13 Dictated By: JENNIFER THOMAS MD
[2018-05-04] MEDS ORDERED: PSEUDOEPHEDRINE HCL 30 MG (SUDAFED) TAB PO ONE (23:29)
[2018-05-05] VITALS (14 sets, daily range): BP systolic 120–162; BP diastolic 66–97
[2018-05-05] MEDS ORDERED: PSEUDOEPHEDRINE HCL 30 MG (SUDAFED) TAB PO ONE (00:15)
[2018-05-05] MEDS: KETOROLAC 30 MG/ML VIAL IVP SCH (04:23)
[2018-05-05 06:19] LABS: BASOPHILS % (AUTO) 0 % (0-10); EOSINOPHILS % (AUTO) 0 % (0-10); HEMATOCRIT 33 % (35-52); HEMOGLOBIN 10.9 G/DL (11.5-16.0); LYMPHOCYTES # (AUTO) 1.8 X 10^3 (1.0-4.0); LYMPHOCYTES % (AUTO) 9 % (12-44); MEAN CORPUSCULAR HEMOGLOBIN 31 PG (25-34); MEAN CORPUSCULAR HGB CONC 34 G/DL (32-36); MEAN CORPUSCULAR VOLUME 91 FL (80-99); MEAN PLATELET VOLUME 9.8 FL (7.4-10.4); MONOCYTES # (AUTO) 1.4 X 10^3 (0.0-1.0); MONOCYTES % (AUTO) 8 % (0-12); NEUTROPHILS # (AUTO) 15.4 X 10^3 (1.8-7.8); NEUTROPHILS % (AUTO) 83 % (42-75); PLATELET COUNT 183 10^3/uL (130-400); RED BLOOD COUNT 3.57 10^6/uL (4.35-5.85); RED CELL DISTRIBUTION WIDTH 13.2 % (10.0-14.5); WHITE BLOOD COUNT 18.5 10^3/uL (4.3-11.0)
--- NOTE | 2018-05-05 07:04 | Anesthesia-Regional Post-Op ---
Regional Patient Condition Mental Status: Alert, Oriented x3 Circulation: Same as Pre-Op Headache: Absent Sensation: Full Recovery Motor Block: Absent Post Op Complications Complications None Follow Up Care/Instructions Patient Instructions None needed. Anesthesia/Patient Condition Patient is doing well, no complaints, stable vital signs, no apparent adverse anesthesia problems. No complications reported per nursing. PAOLO SANCHEZ CRNA May 05, 2018 07:04
[2018-05-05] MEDS: MAGNESIUM SULFATE DRIP 500 ML IV SCH (07:15)
--- NOTE | 2018-05-05 07:40 | Progress Note-Standard ---
Standard Progress Note Progress Notes/Assess & Plan Date Seen by a Provider: May 05, 2018 Time Seen by a Provider: 07:38 Progress/Assessment & Plan This patient is without complaint. She denies headache, denies shortness breath , denies nausea vomiting, has good pain control. Vital Signs Date Time Temp Pulse Resp B/P (MAP) Pulse Ox O2 Delivery O2 Flow Rate FiO2 05/05/18 06:00 98.2 80 18 151/92 (111) 98 Room Air 05/05/18 04:55 98 18 146/97 (113) 98 Room Air 05/05/18 04:00 89 18 130/74 (92) 98 Room Air 05/05/18 03:00 79 18 140/78 (98) 97 Room Air 05/05/18 02:00 83 18 132/73 (92) 96 Room Air 05/05/18 01:00 80 18 124/75 (91) 96 Room Air 05/05/18 00:00 73 18 120/66 (84) 99 Room Air 05/04/18 23:01 89 18 142/87 (105) Room Air 05/04/18 22:15 84 18 140/81 (100) Room Air 05/04/18 20:47 18 150/86 (107) Room Air 05/04/18 20:35 18 167/77 (107) Room Air 05/04/18 20:25 96 18 177/85 (115) 97 Room Air 05/04/18 19:39 98 Room Air 05/04/18 19:25 98.4 90 18 137/80 (99) 96 Room Air 05/04/18 18:15 98.3 94 18 143/84 (103) 97 Room Air 05/04/18 17:25 91 18 137/83 (101) 96 Room Air 05/04/18 16:05 89 18 183/84 (117) Room Air 05/04/18 15:30 86 167/79 (108) Room Air 05/04/18 15:00 82 159/79 (105) Room Air 05/04/18 14:45 98.4 79 18 141/84 (103) 99 Room Air 05/04/18 12:16 05/04/18 12:10 91 18 147/74 (98) 05/04/18 11:50 96 18 184/91 (122) 05/04/18 11:35 77 18 179/96 (123) 05/04/18 11:30 05/04/18 11:05 71 18 161/88 (112) 05/04/18 10:35 64 18 183/90 (121) 05/04/18 09:50 74 18 176/97 (123) 05/04/18 09:35 98.8 74 18 187/101 (129) I & O 05/05/18 07:00 Intake Total 3550 ml Output Total 4550 ml Balance -1000 ml Blood pressures are normalizing urine output is more than adequate The abdomen is benign. The surgical incision is clean dry and intact. The fundus is firm below the umbilicus. Extremities show no clubbing or cyanosis. There is no Homans sign. There is some pretibial pitting edema. Laboratory Tests Test 05/04/18 09:15 05/04/18 09:49 05/05/18 05:59 Range/Units Urine Protein 32 H 6-12 MG/DL Urine Creatinine 41 30-125 MG/DL Urine Protein/Creatinine Ratio 0.78 White Blood Count 12.6 H 18.5 H 4.3-11.0 10^3/uL Red Blood Count 3.84 L 3.57 L 4.35-5.85 10^6/uL Hemoglobin 11.8 10.9 L 11.5-16.0 G/DL Hematocrit 34 L 33 L 35-52 % Mean Corpuscular Volume 89 91 80-99 FL Mean Corpuscular Hemoglobin 31 31 25-34 PG Mean Corpuscular Hemoglobin Concent 34 34 32-36 G/DL Red Cell Distribution Width 13.2 13.2 10.0-14.5 % Platelet Count 175 183 130-400 10^3/uL Mean Platelet Volume 9.5 9.8 7.4-10.4 FL Neutrophils (%) (Auto) 76 H 83 H 42-75 % Lymphocytes (%) (Auto) 17 9 L 12-44 % Monocytes (%) (Auto) 7 8 0-12 % Eosinophils (%) (Auto) 1 0 0-10 % Basophils (%) (Auto) 0 0 0-10 % Neutrophils # (Auto) 9.5 H 15.4 H 1.8-7.8 X 10^3 Lymphocytes # (Auto) 2.1 1.8 1.0-4.0 X 10^3 Monocytes # (Auto) 0.9 1.4 H 0.0-1.0 X 10^3 Eosinophils # (Auto) 0.1 0.0 0.0-0.3 10^3/uL Basophils # (Auto) 0.0 0.0 0.0-0.1 10^3/uL Sodium Level 137 135-145 MMOL/L Potassium Level 4.0 3.6-5.0 MMOL/L Chloride Level 107 98-107 MMOL/L Carbon Dioxide Level 20 L 21-32 MMOL/L Anion Gap 10 5-14 MMOL/L Blood Urea Nitrogen 7 7-18 MG/DL Creatinine 0.65 0.60-1.30 MG/DL Estimat Glomerular Filtration Rate > 60 BUN/Creatinine Ratio 11 Glucose Level 84 70-105 MG/DL Uric Acid 3.9 2.6-7.2 MG/DL Calcium Level 9.1 8.5-10.1 MG/DL Corrected Calcium 9.6 8.5-10.1 MG/DL Total Bilirubin 0.4 0.1-1.0 MG/DL Aspartate Amino Transf (AST/SGOT) 16 5-34 U/L Alanine Aminotransferase (ALT/SGPT) 12 0-55 U/L Alkaline Phosphatase 110 40-136 U/L Lactate Dehydrogenase 154 125-220 U/L Total Protein 6.5 6.4-8.2 GM/DL Albumin 3.4 3.2-4.5 GM/DL Lab work is normal platelet count is stable. Assessment and plan postoperative day number 1 status post repeat delivery at 35-4/7 weeks' gestation due to severe preeclampsia. Patient has been on magnesium since delivery. Her blood pressures are as normalizing we will continue the labetalol discontinue the magnesium and a close attention to her blood pressures. Otherwise routine care Final Diagnosis 35-4/7 week repeat delivery due to severe preeclampsia JENNIFER THOMAS MD May 05, 2018 7:40 am
[2018-05-05] MEDS ORDERED: IBUP-1780 PO (07:44)
[2018-05-05] MEDS ORDERED: OXYC1TAB12 PO (07:44)
[2018-05-05] MEDS ORDERED: DOCU100C37 PO (07:44)
[2018-05-05] MEDS ORDERED: LABE200T7 PO (07:44)
--- NOTE | 2018-05-05 07:46 | Discharge Instructions ---
Discharge Instructions Discharge Medications New, Converted or Re-Newed RX: RX on Chart Patient Instructions Patient Instructions: As directed Return to The Hospital For: As directed Activity & Diet Discharge Diet: No Restrictions Activity as Tolerated: No Orders-Post D/C & Referrals Follow Up Appt: RTC 1 week for incision check. Call to make follow up appt. for patient in 4 weeks. Wound Care: Remove edwardo, apply benzoin and steri strips. Activity Per routine post instructions. Diet as tolerated Patient may shower or tub bathe as desired. Continue home meds JENNIFER THOMAS MD May 05, 2018 7:46 am
[2018-05-05] MEDS: LABETALOL 200 MG (NORMODYNE) TAB PO SCH ×2 (09:25→21:03)
[2018-05-05] MEDS: oxyCODONE/APAP 10/325MG (PERCOCET 10) TABLET PO PRN ×4 (09:26→22:18)
[2018-05-05] MEDS: DOCUSATE SODIUM 100 MG (COLACE) CAP PO SCH ×2 (09:29→21:03)
[2018-05-05] MEDS ORDERED: D5 LR IV SOLUTION 1,000 ML IV ONE (13:15)
[2018-05-05] MEDS: IBUPROFEN 800 MG (MOTRIN) TAB PO SCH ×2 (13:28→21:04)
[2018-05-05] MEDS: ONDANSETRON 4 MG/2 ML (SDV) Z0FRAN IVP PRN ×2 (14:11→22:18)
[2018-05-05 14:57] LABS: CARBON DIOXIDE 21 MMOL/L (21-32); CHLORIDE 106 MMOL/L (98-107); POTASSIUM 4.2 MMOL/L (3.6-5.0); SODIUM 138 MMOL/L (135-145)
[2018-05-05 14:58] LABS: ALANINE AMINOTRANSFERASE 16 U/L (0-55); ALBUMIN 3.4 GM/DL (3.2-4.5); ALKALINE PHOSPHATASE 115 U/L (40-136); BILIRUBIN,TOTAL 0.3 MG/DL (0.1-1.0); BUN/CREATININE RATIO 14; CALCIUM 8.5 MG/DL (8.5-10.1); GFR ESTIMATED > 60; GLUCOSE 146 MG/DL (70-105); TOTAL PROTEIN 6.4 GM/DL (6.4-8.2)
[2018-05-05] MEDS: BENZONATATE 100 MG (TESSALON) CAPSULE PO SCH (18:22)
[2018-05-06 02:00] VITALS: BP 154/86
[2018-05-06] MEDS: IBUPROFEN 800 MG (MOTRIN) TAB PO SCH ×2 (03:07→09:51)
[2018-05-06] MEDS: oxyCODONE/APAP 10/325MG (PERCOCET 10) TABLET PO PRN (06:50)
[2018-05-06 06:53] VITALS: BP 150/73
--- NOTE | 2018-05-06 07:55 | Progress Note-Standard ---
Standard Progress Note Progress Notes/Assess & Plan Date Seen by a Provider: May 06, 2018 Time Seen by a Provider: 07:54 Progress/Assessment & Plan This patient is without complaint. She denies headache, denies shortness breath , denies nausea vomiting, has good pain control. Vital Signs Date Time Temp Pulse Resp B/P (MAP) Pulse Ox O2 Delivery O2 Flow Rate FiO2 05/05/18 06:00 98.2 80 18 151/92 (111) 98 Room Air 05/05/18 04:55 98 18 146/97 (113) 98 Room Air 05/05/18 04:00 89 18 130/74 (92) 98 Room Air 05/05/18 03:00 79 18 140/78 (98) 97 Room Air 05/05/18 02:00 83 18 132/73 (92) 96 Room Air 05/05/18 01:00 80 18 124/75 (91) 96 Room Air 05/05/18 00:00 73 18 120/66 (84) 99 Room Air 05/04/18 23:01 89 18 142/87 (105) Room Air 05/04/18 22:15 84 18 140/81 (100) Room Air 05/04/18 20:47 18 150/86 (107) Room Air 05/04/18 20:35 18 167/77 (107) Room Air 05/04/18 20:25 96 18 177/85 (115) 97 Room Air 05/04/18 19:39 98 Room Air 05/04/18 19:25 98.4 90 18 137/80 (99) 96 Room Air 05/04/18 18:15 98.3 94 18 143/84 (103) 97 Room Air 05/04/18 17:25 91 18 137/83 (101) 96 Room Air 05/04/18 16:05 89 18 183/84 (117) Room Air 05/04/18 15:30 86 167/79 (108) Room Air 05/04/18 15:00 82 159/79 (105) Room Air 05/04/18 14:45 98.4 79 18 141/84 (103) 99 Room Air 05/04/18 12:16 05/04/18 12:10 91 18 147/74 (98) 05/04/18 11:50 96 18 184/91 (122) 05/04/18 11:35 77 18 179/96 (123) 05/04/18 11:30 05/04/18 11:05 71 18 161/88 (112) 05/04/18 10:35 64 18 183/90 (121) 05/04/18 09:50 74 18 176/97 (123) 05/04/18 09:35 98.8 74 18 187/101 (129) I & O 05/05/18 07:00 Intake Total 3550 ml Output Total 4550 ml Balance -1000 ml Blood pressures are normalizing urine output is more than adequate The abdomen is benign. The surgical incision is clean dry and intact. The fundus is firm below the umbilicus. Extremities show no clubbing or cyanosis. There is no Homans sign. There is some pretibial pitting edema. Laboratory Tests Test 05/04/18 09:15 05/04/18 09:49 05/05/18 05:59 Range/Units Urine Protein 32 H 6-12 MG/DL Urine Creatinine 41 30-125 MG/DL Urine Protein/Creatinine Ratio 0.78 White Blood Count 12.6 H 18.5 H 4.3-11.0 10^3/uL Red Blood Count 3.84 L 3.57 L 4.35-5.85 10^6/uL Hemoglobin 11.8 10.9 L 11.5-16.0 G/DL Hematocrit 34 L 33 L 35-52 % Mean Corpuscular Volume 89 91 80-99 FL Mean Corpuscular Hemoglobin 31 31 25-34 PG Mean Corpuscular Hemoglobin Concent 34 34 32-36 G/DL Red Cell Distribution Width 13.2 13.2 10.0-14.5 % Platelet Count 175 183 130-400 10^3/uL Mean Platelet Volume 9.5 9.8 7.4-10.4 FL Neutrophils (%) (Auto) 76 H 83 H 42-75 % Lymphocytes (%) (Auto) 17 9 L 12-44 % Monocytes (%) (Auto) 7 8 0-12 % Eosinophils (%) (Auto) 1 0 0-10 % Basophils (%) (Auto) 0 0 0-10 % Neutrophils # (Auto) 9.5 H 15.4 H 1.8-7.8 X 10^3 Lymphocytes # (Auto) 2.1 1.8 1.0-4.0 X 10^3 Monocytes # (Auto) 0.9 1.4 H 0.0-1.0 X 10^3 Eosinophils # (Auto) 0.1 0.0 0.0-0.3 10^3/uL Basophils # (Auto) 0.0 0.0 0.0-0.1 10^3/uL Sodium Level 137 135-145 MMOL/L Potassium Level 4.0 3.6-5.0 MMOL/L Chloride Level 107 98-107 MMOL/L Carbon Dioxide Level 20 L 21-32 MMOL/L Anion Gap 10 5-14 MMOL/L Blood Urea Nitrogen 7 7-18 MG/DL Creatinine 0.65 0.60-1.30 MG/DL Estimat Glomerular Filtration Rate > 60 BUN/Creatinine Ratio 11 Glucose Level 84 70-105 MG/DL Uric Acid 3.9 2.6-7.2 MG/DL Calcium Level 9.1 8.5-10.1 MG/DL Corrected Calcium 9.6 8.5-10.1 MG/DL Total Bilirubin 0.4 0.1-1.0 MG/DL Aspartate Amino Transf (AST/SGOT) 16 5-34 U/L Alanine Aminotransferase (ALT/SGPT) 12 0-55 U/L Alkaline Phosphatase 110 40-136 U/L Lactate Dehydrogenase 154 125-220 U/L Total Protein 6.5 6.4-8.2 GM/DL Albumin 3.4 3.2-4.5 GM/DL Lab work is normal platelet count is stable. Assessment and plan postoperative day number 1 status post repeat delivery at 35-4/7 weeks' gestation due to severe preeclampsia. Patient has been on magnesium since delivery. Her blood pressures are as normalizing we will continue the labetalol discontinue the magnesium and a close attention to her blood pressures. Otherwise routine care May 06, 2018 Patient without complaint. She is ambulating, voiding, tolerating oral intake well denies headache denies shortness of breath denies nausea vomiting and denies chest pain. Patient is requesting discharge home. Vital Signs Date Time Temp Pulse Resp B/P (MAP) Pulse Ox O2 Delivery O2 Flow Rate FiO2 05/06/18 06:53 97.8 85 18 150/73 (98) 98 05/06/18 02:00 97.0 79 18 154/86 (108) 97 05/05/18 22:30 98.0 88 18 137/69 (91) 05/05/18 20:30 97.5 78 18 162/85 (110) 05/05/18 18:48 97.4 81 18 142/77 (98) 05/05/18 14:30 152/91 (111) 05/05/18 12:20 97.5 86 24 135/79 (97) 99 Room Air 05/05/18 09:15 78 157/91 (113) I & O 05/06/18 07:00 Intake Total 1400 ml Output Total 2750 ml Balance -1350 ml Vital signs are stable. Patient is afebrile. The abdomen is benign. The fundus is firm below the umbilicus and nontender. The surgical incision is clean dry and intact. Extremities show no clubbing cyanosis. There is no Homans sign. There is some pretibial pitting edema that is within normal limits. Assessment and plan postoperative day number 2 status post repeat delivery due to severe preeclampsia. Plan is for discharge home with follow-up in clinic patient will be maintained on the labetalol with blood pressure check in clinic Final Diagnosis 35-4/7 weeks' gestation repeat delivery JENNIFER THOMAS MD May 06, 2018 7:55 am
[2018-05-06] MEDS ORDERED: LABE100T6 PO (08:07)
[2018-05-06 10:00] VITALS: BP 161/83
[2018-05-06] MEDS: DOCUSATE SODIUM 100 MG (COLACE) CAP PO SCH (10:05)
[2018-05-06] MEDS: LABETALOL 200 MG (NORMODYNE) TAB PO SCH (10:05)
[2018-05-06] MEDS: BENZONATATE 100 MG (TESSALON) CAPSULE PO SCH (10:05)
== END 2018-05-06 11:05 | disposition home or self-care (01) | DRG 785 ==
LOC: WSo 09:23 → LDRP 09:23 → WSo 11:07 → LDRP 11:08 → WS 13:19
PROVIDERS: ADMIT Obstetrics & Gynecology; ATTEND Obstetrics & Gynecology
PROC: 0UT70ZZ Resection of Bilateral Fallopian Tubes, Open Approach (ICD-10-PCS; 2018-05-04)
PROC: 3E0T3BZ Introduction of Anesthetic Agent into Peripheral Nerves and Plexi, Percutaneous Approach (ICD-10-PCS; 2018-05-04)
PROC: 10D00Z1 Extraction of Products of Conception, Low, Open Approach (ICD-10-PCS; principal; 2018-05-04 12:19)
DX: O14.14 Severe pre-eclampsia complicating childbirth (principal); O34.211 Maternal care for low transverse scar from previous cesarean delivery; Z3A.35 35 weeks gestation of pregnancy; Z37.0 Single live birth; Z40.03 Encounter for prophylactic removal of fallopian tube(s); Z88.1 Allergy status to other antibiotic agents
CPT/HCPCS: 36415; 80053; 82570; 82962; 83615; 84156; 84550; 85025; 86850; 86900; 86901; 88302; 88307; 94664

== ENCOUNTER → 2020-12-24 | Outpatient (CLI) | payer BC ==
[~2020-12-24] MED LIST changes: -BETAMETHASONE ACE/NA PHOS 6 MG/ML (CELESTONE SOLUSPAN) IM SCH; +DOCU100C37 PO; -FOLI1TAB24; +FOLI1TAB33; +IBUP-1780 PO; +LABE100T6 PO; +LABE200T7 PO; +OXYC1TAB12 PO
--- NOTE | 2020-12-25 13:13 | Diagnostic Imaging Report ---
INDICATION: 2-D and 3-D baseline digital screening with CAD. There are scattered fibroglandular densities in the breasts. There is no mass, architecture distortions, spiculated lesion or suspicious calcifications. Skin and nipples and axillary within normal limits. IMPRESSION: Negative baseline screening mammograms. BI-RADS Category 1 ACR BI-RADS Category 1: Negative. Result letter will be mailed to the patient. Note: At least 10% of breast cancer is not imaged by mammography. Dictated by: Dictated on workstation # [id number]
== END ==
LOC: RAD 12:35 → MERGE 12:45
PROVIDERS: ATTEND Obstetrics & Gynecology
DX: Z12.31 Encounter for screening mammogram for malignant neoplasm of breast (principal)
CPT/HCPCS: 77063; 77067

== ENCOUNTER → 2021-09-17 | Outpatient (CLI) | payer BC | LOC: CARD 14:41 | PROVIDERS: ATTEND Nurse Practitioner Family | DX: Z01.810 Encounter for preprocedural cardiovascular examination (principal); I10 Essential (primary) hypertension | CPT/HCPCS: 93005 ==

== ENCOUNTER → 2022-06-24 | Outpatient (CLI) | payer BC ==
[~2022-06-24] MED LIST changes: -LABE100T6 PO; +LABE100T9 PO; +LABE200T10 PO; -LABE200T7 PO
--- NOTE | 2022-06-24 18:29 | Diagnostic Imaging Report ---
HISTORY: Sacroiliac joint pain. TECHNIQUE: 3 views of the bilateral sacroiliac joints. COMPARISON: CT from 10/13/2016. FINDINGS: Bilateral sacroiliac joints appear patent. There is mild sclerosis about the SI joints, bilaterally. No cortical erosions are seen. There is no ankylosis. There is transitional anatomy at the lumbosacral junction with a broad right L5 transverse process. IMPRESSION: 1. Mild sclerosis about the SI joints, bilaterally, may be due to degenerative change or mild chronic sacroiliitis. No erosions are seen. 2. Transitional anatomy at the lumbosacral junction. Dictated by: Dictated on workstation # [id number]
== END ==
LOC: RAD 14:16
PROVIDERS: ATTEND Internal Medicine
DX: M46.1 Sacroiliitis, not elsewhere classified (principal)
CPT/HCPCS: 72202

== ENCOUNTER → 2023-02-05 | Outpatient (CLI) | payer BC ==
--- NOTE | 2023-02-05 15:32 | Diagnostic Imaging Report ---
Indication: Routine screening. Comparison is made with prior mammogram 12/24/2020. 2-D and 3-D bilateral screening mammography was performed CAD. Both breasts are heterogeneously dense, limiting the sensitivity of mammography. A density in the central right breast on the CC view appears to be slightly more prominent. No definite correlate on the MLO view is identified. Left breast is unremarkable. No malignant-appearing microcalcifications are seen. Axillae are unremarkable. IMPRESSION: BI-RADS 0 Right breast density. Additional views are recommended for further evaluation. ACR BI-RADS Category 0: Incomplete. (Needs additional imaging evaluation). Result letter will be mailed to the patient. Note: At least 10% of breast cancer is not imaged by mammography. Dictated by: Dictated on workstation # [id number]
== END ==
LOC: RAD 09:33
PROVIDERS: ATTEND Internal Medicine
DX: Z12.31 Encounter for screening mammogram for malignant neoplasm of breast (principal); N63.10 Unspecified lump in the right breast, unspecified quadrant
CPT/HCPCS: 77063; 77067

== ENCOUNTER → 2023-02-18 | Outpatient (CLI) | payer BC ==
--- NOTE | 2023-02-18 12:49 | Diagnostic Imaging Report ---
Indication: Right breast density. Procedure: The patient presents for additional views. Correlation is made with recent screening study from 02/05/2023. Unilateral right 2-D and 3-D diagnostic mammography was performed. This included rolled CC views, spot compression CC view as well as conventional 90 degree lateral view. Additional views fail to demonstrate a discrete mass. The density noted on the screening study appears to represent superimposed fibroglandular tissue. No underlying mass is detected. IMPRESSION: BI-RADS Category 1 Additional views fail to demonstrate a discrete mass. The patient may return to routine annual screening mammography. ACR BI-RADS Category 1: Negative. Result letter will be mailed to the patient. Note: At least 10% of breast cancer is not imaged by mammography. Dictated by: Dictated on workstation # [id number]
== END ==
LOC: RAD 12:25
PROVIDERS: ATTEND Nurse Practitioner Family
DX: R92.8 Other abnormal and inconclusive findings on diagnostic imaging of breast (principal)
CPT/HCPCS: 77065; G0279